=== PATIENT | male | born 1965 | race Caucasian/White ===

== ENCOUNTER → 2021-06-21 11:26 | Outpatient (CLI) | payer OTHER, SELFPAY ==
--- NOTE | 2021-06-21 | DI.RAD.S_ITS ---
PROCEDURE: XR CERVICAL SPINE 2V OR 3V INDICATIONS: Radiculopathy, cervical region TECHNIQUE: 3 view(s) of the cervical spine were acquired. COMPARISON: None. FINDINGS: Bones: Mild levocurvature. Multilevel degenerative endplate sclerosis and spurring. Diffuse facet arthropathy. Disc spaces grossly preserved. Straightening of the normal lordotic curvature. Soft tissues: Carotid atherosclerotic plaques incidentally noted. IMPRESSION: Mild levocurvature and degenerative changes. Straightening of the normal lordotic curvature. If the patient's pain or other symptoms persist, consider further evaluation with MRI. Carotid atherosclerosis Dictated by: Kei Lewis M.D. on 06/21/2021 at 13:01 Approved by: Kei Lewis M.D. on 06/21/2021 at 13:02
== END ==
PROVIDERS: Referring Provider Family Medicine; Visit Provider Family Medicine
DX: M47.22 Other spondylosis with radiculopathy, cervical region (principal); I65.29 Occlusion and stenosis of unspecified carotid artery
CPT/HCPCS: 72040

== ENCOUNTER → 2021-08-03 12:29 | Outpatient (CLI) | payer OTHER, SELFPAY ==
--- NOTE | 2021-08-03 | DI.MRI.S_ITS ---
PROCEDURE: MR CERVICAL SPINE WO CON INDICATIONS: Radiculopathy, cervical region TECHNIQUE: Noncontrast sagittal T1 spin echo and T2 fast spin echo, sagittal STIR, foraminal oblique sagittal T2 fast spin echo, and axial gradient echo or T2 fast spin echo through the cervical spine. COMPARISON: [facility], CR, XR CERVICAL SPINE 2V OR 3V, 06/21/2021, 11:42. FINDINGS: Image quality: Excellent. Alignment and Curvature: There is normal bony alignment. Bone Marrow: Marrow demonstrates normal overall signal. Spinal Cord: Visualized spinal cord has normal size and signal. No cerebellar tonsillar herniation. Paraspinous Soft Tissues: No paravertebral masses. Prevertebral soft tissues are normal in thickness. C2-C3: Loss of disc signal. No central stenosis. No neural foraminal narrowing. No neural compression. C3-C4: Loss of disc signal. Mild, diffuse disc bulge. Mild narrowing of the central canal. No neural foraminal narrowing. No neural compression. C4-C5: Loss of disc signal. Mild, diffuse disc bulge. Mild narrowing of the central canal. No neural foraminal narrowing. No neural compression. C5-C6: Loss of disc signal. Mild, diffuse disc bulge. Mild narrowing of the central canal. No neural foraminal narrowing. No neural compression. C6-C7: Loss of disc signal and slight loss of disc height. Moderate, diffuse disc bulge. Right central/right foraminal disc extrusion. Extruded disc material causes severe right neural foraminal narrowing and compression of the exiting right C7 nerve root. Left neural foramen is fully patent. Moderate narrowing of the central canal. C7-T1: Loss of disc signal. No central stenosis. No neural foraminal narrowing. No neural compression. IMPRESSION: 1. Multilevel degenerative disc disease. 2. Right central/right foraminal C6-C7 disc extrusion. Extruded disc material causes severe right neural foraminal narrowing and compression of the exiting right C7 nerve root. 3. No severe central canal narrowing. Dictated by: Elyse Bustamante MD, PhD on 08/05/2021 at 9:43 Approved by: Elyse Bustamante MD, PhD on 08/05/2021 at 9:46
== END ==
PROVIDERS: Referring Provider Family Medicine; Visit Provider Family Medicine
DX: M50.11 Cervical disc disorder with radiculopathy, high cervical region (principal); M48.02 Spinal stenosis, cervical region
CPT/HCPCS: 72141

== ENCOUNTER 2021-12-03 15:28 | Emergency (ER) | payer OTHER, SELFPAY ==
[2021-12-03] VITALS (37 sets, daily range): BP systolic 123–148; BP diastolic 61–88; PULSE 92–103; RESP 14–41; TEMP 36.6; O2SAT 93–96; BMI 29.8
--- NOTE | 2021-12-03 15:42 | DI.RAD.S_ITS ---
PROCEDURE: XR CHEST 1V INDICATIONS: chest pain TECHNIQUE: One view of the chest was acquired. COMPARISON: None. FINDINGS: Surgical changes and devices: None. Lungs and pleura: Lungs are clear. No pleural effusions or pneumothorax. Mediastinum: Mediastinal contours appear normal. Heart size is normal. Bones and chest wall: No suspicious bony lesions. Overlying soft tissues appear unremarkable. IMPRESSION: No acute cardiopulmonary process demonstrated radiographically. Dictated by: Tonny Barton M.D. on 12/03/2021 at 16:40 Approved by: Tonny Barton M.D. on 12/03/2021 at 16:40
[2021-12-03] MEDS: NITROGLYCERIN 0.4 MG SL TAB SL ×2 (16:00→16:10)
[2021-12-03] MEDS: ASPIRIN 81 MG CHEW TAB 324 MG PO (16:01)
[2021-12-03 16:04] LABS: Add Manual Diff / Slide Review NO; Basophils Absolute Auto 200 /uL (0-100); Basophils Percent Auto 1.2 % (0-2); Eosinophils Absolute Auto 300 /uL (0-450); Eosinophils Percent Auto 2.4 % (2-4); Hematocrit 47.2 % (41-53); Hemoglobin 15.9 g/dL (13.5-17.5); Lymphocytes Absolute Auto 3300 /uL (1100-4500); Lymphocytes Percent Auto 26.6 % (25-40); Mean Corpuscular HGB Conc 33.6 % (30-36); Mean Corpuscular Hemoglobin 31.5 PG (26-34); Mean Corpuscular Volume 93.5 fL (80-100); Monocytes Absolute Auto 1200 /uL (0-900); Monocytes Percent Auto 9.7 % (3-14); Neutrophils Absolute Auto 7500 /uL (1500-7000); Neutrophils Percent Auto 60.1 % (50-75); Platelet Count 436 X10^3/uL (150-400); Red Blood Cell Count 5.04 X10^6/uL (4.5-5.9); Red Cell Distribution Width 14.9 % (11.6-14.8); White Blood Cell Count 12.5 X10^3/uL (4.5-11.0)
[2021-12-03 16:10] LABS: INR 1.1 (0.9-1.3); Prothrombin Time 12.7 SECONDS (10.1-12.7)
--- NOTE | 2021-12-03 16:11 | ED.CHESTPAIN ---
HPI - Chest Pain General Chief Complaint: Chest Pain Stated Complaint: chest pain Time Seen by Provider: 12/03/21 16:09 Source: patient Mode of arrival: Ambulatory Limitations: no limitations History of Present Illness HPI narrative: Patient is a 56-year-old male history of coronary artery disease 4 stents placed presents today with burning in his chest. He went to the walk-in clinic because he can feel burning in the back of his throat. He has burning sensation in his chest as well. No significant shortness of breath with exertion. He does not describe it as chest pain. No nausea or vomiting. No provocation or palliation. He he is followed by Dr. sampson at [facility]. His he recently had a cardioversion for atrial flutter and is on Eliquis and aspirin. He was given nitroglycerin for burning in his chest upon arrival to the emergency department and it has had no relief for him. He has previously tried Tums he says that also has not helped. His 1st SD and stent in 2005, he tried multiple antacid medications none of them helped then failed his treadmill test within minutes. Related Data Allergies Allergy/AdvReac Type Severity Reaction Status Date / Time naproxen AdvReac Severe Abdominal Verified 12/03/21 15:34 Pain procaine [From Novocain] AdvReac Intermediate Vomiting Verified 12/03/21 15:34 Review of Systems Review of Systems Narrative: GENERAL: Denies chills, fatigue, malaise, fever, sweats, travel HEENT: Denies sinus pain, ear pain, sore throat, difficulty swallowing, neck pain RESPIRATORY: Denies dyspnea, cough, wheezing, hemoptysis, sputum. CARDIOVASCULAR: See HPI GASTROINTESTINAL: Denies nausea, vomiting, abdominal pain, diarrhea, constipation, melena. : Denies dysuria, frequency, incontinence, hematuria, urinary retention, flank pain. MUSCULOSKELETAL: Denies weakness, joint pain, or bony pain SKIN: No rash, no erythema, no pruritus NEUROLOGIC: Denies weakness, dizziness, headache, numbness, change in speech, confusion PSYCHIATRIC: No concerning psychosocial issues. 12 point review of systems is negative except for those stated above and HPI Patient History Social History Smoking Status: Never smoker Smoking Status: Never smoker alcohol intake frequency: a few times a month Substance Use Type: does not use Exam Initial Vital Signs Initial Vital Signs: Vital Signs Temperature 97.9 F 12/03/21 15:34 Pulse Rate 101 H 12/03/21 15:34 Respiratory Rate 18 12/03/21 15:34 Blood Pressure 124/88 12/03/21 15:34 Pulse Oximetry 96 12/03/21 15:34 GENERAL: Alert pleasant well-appearing 56-year-old male and in no acute distress. HEENT: Head atraumatic,EOMI, pupils reactive, face symmetric, moist mucous membranes CARDIOVASCULAR: Regular rate and rhythm without murmurs, rubs or gallops. RESPIRATORY: Breath sounds equal bilaterally, no wheezes rales or rhonchi. ABDOMEN: Soft, nontender. Normoactive bowel sounds all 4 quadrants. No guarding or rebound. EXTREMITIES: Normal range of motion, no clubbing or edema. Neurovascularly intact NEUROLOGICAL: Alert and oriented x4.Normal gait and speech. SKIN: Warm, dry, no laceration, no petechiae, no rashes or lesions. Course Orders Ordered: ED Orders 12/03/21 15:33 EKG-12 Lead Routine 12/03/21 15:42 XR chest 1V Stat 12/03/21 15:55 Complete Blood Count AUTO DIFF Stat Comprehensive Metabolic Panel Stat Lipase Stat Magnesium Stat Partial Thromboplastin Time Stat Prothrombin Time INR Stat Troponin & CK Cardiac Panel Stat 12/03/21 16:24 EKG-12 Lead Stat 12/03/21 18:05 Trop I [Troponin I] Stat Discontinued Medications Aspirin (Aspirin 81 Mg Chew Tab) 324 mg PO NOW ONE Stop: 12/03/21 15:43 Last Admin: 12/03/21 16:01 Dose: 324 mg Documented by: CARLOS Al Hydrox/Mg Hydrox/Simethicone 20 ml/ Lidocaine HCl 15 ml 0 ml PO NOW ONE Stop: 12/03/21 19:06 Last Admin: 12/03/21 19:28 Dose: 15 ml Documented by: MOODY Nitroglycerin (Nitroglycerin 0.4 Mg Sl Tab) 0.4 mg SL [id number] PRN PRN Reason: Chest Pain Last Admin: 12/03/21 16:10 Dose: 0.4 mg Documented by: Admin: 12/03/21 16:00 Dose: 0.4 mg Documented by: CARLOS Pantoprazole Sodium (Pantoprazole 40 Mg Vial) 40 mg IV NOW ONE Stop: 12/03/21 16:55 Last Admin: 12/03/21 17:21 Dose: 40 mg Documented by: KEN Vital Signs Vital signs: Vital Signs - 8 hr 12/03/21 15:34 12/03/21 16:00 12/03/21 16:10 Temperature 97.9 F Pulse Rate 101 H 103 H Respiratory Rate 18 Blood Pressure 124/88 146/75 H 143/81 H Pulse Oximetry 96 12/03/21 16:45 12/03/21 16:50 12/03/21 16:55 Temperature Pulse Rate 96 H 96 H Respiratory Rate 15 24 Blood Pressure 136/73 140/72 Pulse Oximetry 93 93 12/03/21 17:00 12/03/21 17:05 12/03/21 17:10 Temperature Pulse Rate 96 H 98 H 96 H Respiratory Rate 17 19 26 H Blood Pressure 140/81 139/78 138/78 Pulse Oximetry 93 93 93 12/03/21 17:15 12/03/21 17:20 12/03/21 17:26 Temperature Pulse Rate 95 H 93 H 94 H Respiratory Rate 16 25 H 27 H Blood Pressure 137/73 135/69 148/85 H Pulse Oximetry 95 95 95 12/03/21 17:30 12/03/21 17:35 12/03/21 17:40 Temperature Pulse Rate 92 H 94 H 96 H Respiratory Rate 17 16 16 Blood Pressure 140/69 137/71 123/62 Pulse Oximetry 95 95 94 12/03/21 17:45 12/03/21 17:50 12/03/21 17:55 Temperature Pulse Rate 94 H 96 H 98 H Respiratory Rate 18 19 15 Blood Pressure 130/64 134/69 133/65 Pulse Oximetry 94 93 93 12/03/21 18:00 12/03/21 18:05 12/03/21 18:10 Temperature Pulse Rate 93 H 95 H 96 H Respiratory Rate 16 14 26 H Blood Pressure 134/66 144/69 H 142/68 H Pulse Oximetry 93 94 95 12/03/21 18:15 12/03/21 18:20 12/03/21 18:25 Temperature Pulse Rate 95 H 94 H 97 H Respiratory Rate 19 15 34 H Blood Pressure 135/67 135/61 127/61 Pulse Oximetry 94 94 94 12/03/21 18:30 12/03/21 18:31 12/03/21 18:35 Temperature Pulse Rate 94 H 95 H 93 H Respiratory Rate 20 20 33 H Blood Pressure 135/73 130/65 Pulse Oximetry 94 95 94 12/03/21 18:40 12/03/21 18:45 12/03/21 18:50 Temperature Pulse Rate 94 H 95 H 93 H Respiratory Rate 23 17 22 Blood Pressure 132/67 132/70 134/66 Pulse Oximetry 94 94 94 12/03/21 18:55 12/03/21 19:00 12/03/21 19:05 Temperature Pulse Rate 94 H 96 H 96 H Respiratory Rate 21 41 H 25 H Blood Pressure 131/66 141/74 H 141/75 H Pulse Oximetry 94 94 95 12/03/21 19:10 12/03/21 19:15 12/03/21 19:20 Temperature Pulse Rate 94 H 93 H 92 H Respiratory Rate 34 H 18 24 Blood Pressure 131/62 128/67 133/65 Pulse Oximetry 94 94 94 12/03/21 19:25 Temperature Pulse Rate 92 H Respiratory Rate 22 Blood Pressure 134/68 Pulse Oximetry 93 MDM - Chest Pain Lab Data Result diagrams: 12/03/21 15:55 12/03/21 15:55 Labs: Lab Results 12/03/21 12/03/21 12/03/21 Range/Units 15:55 15:55 15:55 WBC 12.5 H (4.5-11.0) X10^3/uL RBC 5.04 (4.5-5.9) X10^6/uL Hgb 15.9 (13.5-17.5) g/dL Hct 47.2 (41-53) % MCV 93.5 (80-100) fL MCH 31.5 (26-34) PG MCHC 33.6 (30-36) % RDW 14.9 H (11.6-14.8) % Plt Count 436 H (150-400) X10^3/uL Neut % (Auto) 60.1 (50-75) % Lymph % (Auto) 26.6 (25-40) % [place] % (Auto) 9.7 (3-14) % Eos % (Auto) 2.4 (2-4) % Baso % (Auto) 1.2 (0-2) % Neut # (Auto) 7500 H (1994-4722) /uL Lymph # (Auto) 3300 (4930-8468) /uL [place] # (Auto) 1200 H (0-900) /uL Eos # (Auto) 300 (0-450) /uL Baso # (Auto) 200 H (0-100) /uL PT 12.7 (10.1-12.7) SECONDS INR 1.1 (0.9-1.3) APTT 34 (26.4-36.2) SECONDS Sodium 139 (137-145) mmol/L Potassium 3.6 (3.4-5.1) mmol/L Chloride 105 (98-107) mmol/L Carbon Dioxide 25 (22-32) mmol/L BUN 12 (9-20) mg/dL Creatinine 1.03 (0.66-1.25) mg/dL Estimated GFR > 60 (>60) mL/min BUN/Creatinine Ratio 11.7 (6-22) Glucose 114 H (70-100) mg/dL Calcium 10.1 (8.4-10.2) mg/dL Magnesium 1.0 L (1.6-2.3) mg/dL Total Bilirubin 0.5 (0.2-1.3) mg/dL AST 85 H (17-59) IU/L ALT 48 (<50) IU/L Alkaline Phosphatase 70 (38-126) U/L Total Creatine Kinase 134 (55-170) U/L CK-MB (CK-2) 1.44 (<2.37) ng/mL CK-MB (CK-2) Rel Index 1.1 L (1.5-5.0) % Troponin I < 0.012 (0.01-0.034) ng/mL Total Protein 8.1 (6.3-8.2) g/dL Albumin 4.6 (3.5-5.0) g/dL Globulin 3.5 (1.7-4.1) g/dL Albumin/Globulin Ratio 1.3 (1.0-2.8) Lipase 143 (23-300) U/L 12/03/21 Range/Units 18:05 WBC (4.5-11.0) X10^3/uL RBC (4.5-5.9) X10^6/uL Hgb (13.5-17.5) g/dL Hct (41-53) % MCV (80-100) fL MCH (26-34) PG MCHC (30-36) % RDW (11.6-14.8) % Plt Count (150-400) X10^3/uL Neut % (Auto) (50-75) % Lymph % (Auto) (25-40) % [place] % (Auto) (3-14) % Eos % (Auto) (2-4) % Baso % (Auto) (0-2) % Neut # (Auto) (4445-8292) /uL Lymph # (Auto) (5368-0952) /uL [place] # (Auto) (0-900) /uL Eos # (Auto) (0-450) /uL Baso # (Auto) (0-100) /uL PT (10.1-12.7) SECONDS INR (0.9-1.3) APTT (26.4-36.2) SECONDS Sodium (137-145) mmol/L Potassium (3.4-5.1) mmol/L Chloride (98-107) mmol/L Carbon Dioxide (22-32) mmol/L BUN (9-20) mg/dL Creatinine (0.66-1.25) mg/dL Estimated GFR (>60) mL/min BUN/Creatinine Ratio (6-22) Glucose (70-100) mg/dL Calcium (8.4-10.2) mg/dL Magnesium (1.6-2.3) mg/dL Total Bilirubin (0.2-1.3) mg/dL AST (17-59) IU/L ALT (<50) IU/L Alkaline Phosphatase (38-126) U/L Total Creatine Kinase (55-170) U/L CK-MB (CK-2) (<2.37) ng/mL CK-MB (CK-2) Rel Index (1.5-5.0) % Troponin I < 0.012 (0.01-0.034) ng/mL Total Protein (6.3-8.2) g/dL Albumin (3.5-5.0) g/dL Globulin (1.7-4.1) g/dL Albumin/Globulin Ratio (1.0-2.8) Lipase (23-300) U/L Imaging Data Chest x-ray: Radiologist's Impression: XRay Report Signed Patient: Nguyễn Beatty MR#: [id number] : 1965 Acct:[id number] Age/Sex: 56 / M Date of Service: 12/03/21 Loc: ED Accession Number: [id number] ?? Procedure: XR chest 1V Ordering Provider: Ksenia No D.O. PROCEDURE:? XR CHEST 1V ? INDICATIONS:? chest pain ? TECHNIQUE:? One view of the chest was acquired.? ? COMPARISON:? None. ? FINDINGS:? ? Surgical changes and devices:? None.? ? Lungs and pleura:? Lungs are clear.? No pleural effusions or pneumothorax.? ? Mediastinum:? Mediastinal contours appear normal.? Heart size is normal.? ? Bones and chest wall:? No suspicious bony lesions.? Overlying soft tissues appear unremarkable.? ? IMPRESSION:? No acute cardiopulmonary process demonstrated radiographically. ? ? Dictated by: Tonny Barton M.D. on 12/03/2021 at 16:40 ? ? Approved by: Tonny Barton M.D. on 12/03/2021 at 16:40 ? ECG Data Interpretation: Sinus rhythm rate 100 p.r. interval 182 QRS 142 QTC 503 right bundle-branch block noted no previous EKG to compare EKG 2. Sinus rhythm rate 100 no changes from prior MDM Narrative Medical decision making narrative: The patient has known coronary artery disease symptoms are concerning a slightly for cardiac. He had no relief with nitroglycerin. He did get Protonix which did help a lot with pain but it still remains. Pain has been pretty consistent for the last 24 hours significantly worse today but not worse with exertion. He has 2- troponins no EKG changes. Overall feeling better. 192 Dr. Sampson, patient's meal room hand has been updated patient's symptoms test results looked in his chart states at this time he will order an outpatient stress test but if patient is feeling better okay to discharge home Multiple places do not have any beds there is a bed shortage. This is the best case scenario for this patient at this particular time Discharge Plan Departure Patient Disposition: Home Clinical Impression: Atypical chest pain Instructions: DI for Atypical Chest Pain Activity Restrictions/Additional Instructions: *You have been diagnosed with atypical chest pain *What to do: Please follow-up with Dr. Guevara. He will be ordering UA stress test. If your discomfort burning chest pain or any symptoms worsen you need to return to closest emergency department as soon as possible *Continue to take medications as directed *Follow up with your primary care provider in 2-3 days or call [phone] *Return to ER if you should have increasing shortness of breath chest burning chest pain palpitations or any new, worsening or concerning symptoms Referrals: Tessy Sampson MD [Non-Staff] -
[2021-12-03 16:12] LABS: PTT Partial Thromboplastin Tim 34 SECONDS (26.4-36.2)
[2021-12-03 16:15] LABS: Alanine Aminotransferase 48 IU/L (<50); Albumin 4.6 g/dL (3.5-5.0); Albumin Globulin Ratio 1.3 (1.0-2.8); Alkaline Phosphatase 70 U/L (38-126); Aspartate Aminotransferase 85 IU/L (17-59); BUN Creatinine Ratio 11.7 (6-22); Bilirubin Total 0.5 mg/dL (0.2-1.3); Blood Urea Nitrogen 12 mg/dL (9-20); Calcium 10.1 mg/dL (8.4-10.2); Carbon Dioxide 25 mmol/L (22-32); Chloride 105 mmol/L (98-107); Creatine Kinase 134 U/L (55-170); Estimated Glomerular Filt Rate > 60 mL/min (>60); Globulin 3.5 g/dL (1.7-4.1); Glucose 114 mg/dL (70-100); HEMOLYSIS 17 (0-50); Lipase 143 U/L (23-300); Potassium 3.6 mmol/L (3.4-5.1); Sodium 139 mmol/L (137-145); Total Protein 8.1 g/dL (6.3-8.2)
[2021-12-03 16:27] LABS: Troponin I < 0.012 ng/mL (0.01-0.034)
[2021-12-03 16:30] LABS: CKMB % Relative Index 1.1 % (1.5-5.0); Creatine Kinase MB 1.44 ng/mL (<2.37)
[2021-12-03] MEDS: PANTOPRAZOLE 40 MG VIAL IV (17:21)
[2021-12-03 18:45] LABS: Troponin I < 0.012 ng/mL (0.01-0.034)
[2021-12-03] MEDS: MAG HYDROX/ALUMINUM/SIMETH SUS 20 ML, LIDOCAINE VISCOUS 2% 15 ML PO (19:28)
== END 2021-12-03 19:33 | disposition home or self-care (01) ==
PROVIDERS: Emergency Provider Emergency Medicine
DX: R07.89 Other chest pain (principal)
CPT/HCPCS: 36415; 71045; 80053; 82550; 82553; 83690; 83735; 84484; 85025; 85610; 85730; 93005; 96374; 99284; C9113

== ENCOUNTER → 2023-01-04 14:14 | Outpatient (CLI) | payer OTHER, SELFPAY ==
--- NOTE | 2023-01-04 | DI.MRI.S_ITS ---
PROCEDURE: MR LUMBAR SPINE WO CON INDICATIONS: Low back pain, unspecified Sciatica TECHNIQUE: Noncontrast sagittal T1 spin echo and T2 fast echo, sagittal STIR, and T2 fast spin echo through the lumbar spine. In cases with scoliosis, additional coronal T2 fast spin echo may be performed. COMPARISON: None. FINDINGS: Image quality: Excellent. Alignment and Curvature: There is normal bony alignment. Bone Marrow: Marrow is of normal overall signal. No acute vertebral body compression fractures. Spinal Cord: Conus medullaris terminates at the L1 level. Visualized cord demonstrates normal signal and size. Paraspinous Soft Tissues: No paravertebral masses. T12-L1: No significant neuroforaminal or spinal canal stenosis. L1-L2: No significant neuroforaminal or spinal canal stenosis. L2-L3: Minimal bilateral facet arthropathy. There is moderate spinal canal stenosis secondary to moderate epidural lipomatosis. No significant neuroforaminal stenosis. L3-L4: Bilateral facet arthropathy. Minimal ligamentum flavum hypertrophy. Small symmetric disc bulge. Moderate epidural lipomatosis. Combination of findings result in mild effacement of the central and bilateral subarticular zones as well as mild spinal canal stenosis and mild bilateral neuroforaminal stenosis. L4-L5: Mild bilateral facet arthropathy. Symmetric disc bulge. Moderate epidural lipomatosis. Combination of findings result in moderate spinal canal stenosis. Mild right neuroforaminal stenosis. Moderate left neuroforaminal stenosis. L5-S1: Minimal bilateral facet arthropathy. Minimal loss of disc signal intensity. Mild disc height loss with small symmetric disc bulge. Moderate epidural lipomatosis with severe neuroforaminal stenosis. There is mild bilateral neuroforaminal stenosis. IMPRESSION: Multilevel, multifactorial lumbar spondylosis as detailed above by vertebral body level. Additionally, degree of spinal canal stenosis is accentuated by presence of substantial epidural lipomatosis. Dictated by: Ezequiel Smith M.D. on 01/05/2023 at 21:31 Approved by: Ezequiel Smith M.D. on 01/05/2023 at 21:41
== END ==
PROVIDERS: Referring Provider Family Medicine; Visit Provider Family Medicine
DX: M47.816 Spondylosis without myelopathy or radiculopathy, lumbar region (principal); M48.061 Spinal stenosis, lumbar region without neurogenic claudication; M54.30 Sciatica, unspecified side; M54.50 Low back pain, unspecified
CPT/HCPCS: 72148